=== PATIENT | male | born 1980 | race Two or more races ===

== ENCOUNTER 2023-05-15 16:07 | Emergency (ER) | payer MEDICAID ==
[~2023-05-15] VITALS: Ht 170.2 cm; Wt 88.9 kg
[2023-05-15 16:50] VITALS: BP 162/94; PULSE 55; RESP 16; TEMP 98.1; O2SAT 98
[2023-05-15] MEDS ORDERED: TETANUS-DIPTH-ACEL PERTUSSIS 0.5ML SYR Tdap IM ONE (17:30)
[2023-05-15] MEDS ORDERED: NAPR-746 PO (17:40)
[2023-05-15] MEDS ORDERED: AMOX500T86 PO (17:40)
== END 2023-05-15 17:57 | disposition home or self-care (01) ==
LOC: ER 16:07
DX: S01.111A Laceration without foreign body of right eyelid and periocular area, initial encounter (principal); Z79.899 Other long term (current) drug therapy; W54.0XXA Bitten by dog, initial encounter; Y93.89 Activity, other specified; Y92.89 Other specified places as the place of occurrence of the external cause; Y99.8 Other external cause status
CPT/HCPCS: 12013; 90471; 90715